=== PATIENT | female | born 1970 | race Caucasian/White ===

== ENCOUNTER 2017-11-09 08:07 | Outpatient (CLI) | payer OTHER ==
[2017-11-09] MEDS ORDERED: Gadobenate Dimeglumine 529 MG/1 ML (20ML VIAL) ONE (09:00)
--- NOTE | 2017-11-09 16:52 | MRI ---
BRAIN MRI WITH AND WITHOUT CONTRAST 11/09/17 HISTORY: Paresthesia of the skin. Numbness and tingling in the right side of the face. Left arm tingling and h eadache x1 week. COMPARISON: None. TECHNIQUE: Brain MRI is performed with and without intravenous gadolinium administration. Multisequential, multi planar imaging is performed. FINDINGS: No parenchymal hemorrhage on the axial gradient echo sequence. No parenchymal mass, mass effect or midline shift. Brain volume, age appropriate. Cortical ross-white matter differentiation is preserved. Ventricles and sulci are patent and symmetric. Central arterial flow voids are maintained. Absence re stricted diffusion. Adequate aeration of the mastoid air cells. Air fluid level in the left maxillary sinus. The calvarium has a normal marrow signal intensity. The midline brain parenchymal structures are unre markable. No significant T2 or FLAIR white matter hyperintensities. No pathologic enhancement of the brain parenchyma. IMPRESSION: 1. Unremarkable pre and postcontrast brain MRI. 2. Left maxillary sinus disease. POS: DIEGO
== END 2017-11-09 08:08 | disposition home or self-care (01) ==
LOC: SCSMRI 08:07
PROVIDERS: ATTEND Psychiatry & Neurology Neurology
DX: R20.2 Paresthesia of skin (principal); J32.0 Chronic maxillary sinusitis
CPT/HCPCS: 70553; A9579

== ENCOUNTER 2018-02-02 13:24 | Outpatient (CLI) | payer OTHER | END 2018-02-02 13:25 | disposition home or self-care (01) | LOC: BICMAMMO 13:24 | PROVIDERS: ATTEND Obstetrics & Gynecology | DX: Z12.31 Encounter for screening mammogram for malignant neoplasm of breast (principal) | CPT/HCPCS: 77063; 77067 ==

== ENCOUNTER 2019-05-03 08:20 | Outpatient (CLI) | payer OTHER ==
--- NOTE | 2019-05-03 08:33 | RAD ---
EXAM: Single view of the abdomen HISTORY: Abdominal pain COMPARISON: None FINDINGS: Single view of the abdomen shows a nonspecific, nonobstructive bowel gas pattern. No suspi cious calcifications are seen. The bones are unremarkable. Cholecystectomy clips are seen. IMPRESSION: Unremarkable exam
== END 2019-05-03 08:21 | disposition home or self-care (01) ==
LOC: RAD-FRANK 08:20
PROVIDERS: ATTEND Nurse Practitioner Family
DX: R14.0 Abdominal distension (gaseous) (principal)
CPT/HCPCS: 74018

== ENCOUNTER 2019-10-29 09:55 | Outpatient (CLI) | payer OTHER ==
--- NOTE | 2019-10-29 10:39 | ULT ---
RIGHT UPPER QUADRANT ULTRASOUND: Date: 10/29/2019 HISTORY: Right upper quadrant pain. FINDINGS: The patient is post cholecystectomy. The liver, right kidney, and pancreas appear normal. The common duct measures 5.0 mm in diameter. No free fluid is seen in Morison's pouch. IMPRESSION: Status post cholecystectomy. Otherwise normal exam. POS: REILLYA
== END 2019-10-29 09:56 | disposition home or self-care (01) ==
LOC: BICULT 09:55
PROVIDERS: ATTEND Internal Medicine Gastroenterology
DX: K21.9 Gastro-esophageal reflux disease without esophagitis (principal); R10.11 Right upper quadrant pain; Z90.49 Acquired absence of other specified parts of digestive tract
CPT/HCPCS: 76705

== ENCOUNTER 2020-06-30 08:37 | Outpatient (CLI) | payer OTHER ==
--- NOTE | 2020-06-30 10:04 | CT ---
CT of theabdomen and pelvis: 06/30/2020 COMPARISON:None available HISTORY:Right upper quadrant pain TECHNIQUE: Serial axial CT imaging at5 mm intervals from thelung bases through the pubic symphysis wi th intravenous and oral contrast. Coronal and sagittal reformatted imaging obtained Findings:Incidental note is made of a 4 mm nodule within the left lung base. Cholecystectomy clips ar e present. No free intraperitoneal air or fluid. Hepatic hypodensity noted, suggesting steatosis. No focal liver lesion. Spleen, pancreas, adrenal gla nds, and kidneys unremarkable. Large and small bowel demonstrates no evidence for inflammatory change or obstruction. The patient re ports prior appendectomy. No abdominal or pelvic lymphadenopathy. There is a very small fat-containing umbilical hernia. No abdominal or pelvic lymphadenopathy. No acute osseous abnormality. Impression:Incidental findings as detailed above. No acute findings in the abdomen/pelvis.
[2020-06-30] MEDS ORDERED: Iopamidol-370 76% 500 ML 1 ML ONE (13:25)
== END 2020-06-30 08:38 | disposition home or self-care (01) ==
LOC: BICCT 08:37
PROVIDERS: ATTEND Internal Medicine Gastroenterology
DX: R10.9 Unspecified abdominal pain (principal); R91.1 Solitary pulmonary nodule
CPT/HCPCS: 74177; Q9967

== ENCOUNTER 2020-09-21 11:59 | Outpatient (CLI) | payer OTHER | END 2020-09-21 12:00 | disposition home or self-care (01) | LOC: BICMAMMO 11:59 | PROVIDERS: ATTEND Obstetrics & Gynecology | DX: Z12.31 Encounter for screening mammogram for malignant neoplasm of breast (principal) | CPT/HCPCS: 77063; 77067 ==

== ENCOUNTER 2020-10-02 13:03 | Outpatient (CLI) | payer OTHER | END 2020-10-02 13:04 | disposition home or self-care (01) | LOC: BICCT 13:03 | PROVIDERS: ATTEND Internal Medicine | DX: R91.1 Solitary pulmonary nodule (principal); J98.4 Other disorders of lung | CPT/HCPCS: 71260 ==

== ENCOUNTER 2022-10-06 15:42 | Outpatient (CLI) | payer OTHER | END 2022-10-06 15:43 | disposition home or self-care (01) | LOC: BICMAMMO 15:42 | PROVIDERS: ATTEND Obstetrics & Gynecology | DX: Z12.31 Encounter for screening mammogram for malignant neoplasm of breast (principal) | CPT/HCPCS: 77063; 77067 ==

== ENCOUNTER 2024-01-01 13:01 | Outpatient (CLI) | payer OTHER | END 2024-01-01 13:02 | disposition home or self-care (01) | LOC: BICMAMMO 13:01 | PROVIDERS: ATTEND Obstetrics & Gynecology | DX: Z12.31 Encounter for screening mammogram for malignant neoplasm of breast (principal) | CPT/HCPCS: 77063; 77067 ==